=== PATIENT | female | born 1970 | race Caucasian/White ===

== ENCOUNTER → 2017-06-24 | Outpatient (CLI) | payer OTHER ==
[~2017-06-24] MED LIST: AMLO5TAB4 PO; HYDRODIURIL PO; ISON300T4 PO; LEVE500T53 PO; METO25TA91 PO; PARO20TA98 PO; POTA10TA5 PO; TRAM50TA2 PO
[2017-06-24 12:14] LABS: HEMATOCRIT 43.4 % (34.6-47.8); HEMOGLOBIN 14.8 g/dL (11.7-16.4)
[2017-06-24 12:32] LABS: BLOOD UREA NITROGEN 16 mg/dL (7-18)
[2017-06-24 12:40] LABS: ASPARTATE AMINO TRANSFERASE 20 U/L (15-37)
== END | disposition home or self-care (01) ==
LOC: STAR 10:48
PROVIDERS: ATTEND Specialist
DX: Z01.818 Encounter for other preprocedural examination (principal); N80.0 Endometriosis of uterus; N94.5 Secondary dysmenorrhea; R10.2 Pelvic and perineal pain
CPT/HCPCS: 36415; 80053; 84703; 85025

== ENCOUNTER 2017-06-30 10:36 | Day surgery (SDC) | payer OTHER ==
[~2017-06-30] VITALS: Ht 157.5 cm; Wt 63.3 kg
[~2017-06-30 10:36] MED LIST changes: +BUPIVACAINE/PF 0.25% ONE
[2017-06-30 10:54] LABS: HCG UR LOT HCG706132
[2017-06-30] MEDS ORDERED: LACTATED RINGERS 1,000 ML IV SCH (10:59)
[2017-06-30 11:01] LABS: HCG UR OBC PASS
[2017-06-30 11:04] VITALS: BP 122/84
[2017-06-30] MEDS ORDERED: MIDAZOLAM 1 MG/ML, 2ML ONE (11:30)
[2017-06-30] MEDS ORDERED: FENTANYL PF 250 MCG/5ML ONE (11:30)
[2017-06-30] MEDS ORDERED: LIDOCAINE-MPF 2% ,5ML ONE (11:31)
[2017-06-30] MEDS ORDERED: KETOROLAC 30 MG/1 ML ONE (11:31)
[2017-06-30] MEDS ORDERED: LIDOCAINE GEL 2%, 5ML ONE (11:31)
[2017-06-30] MEDS ORDERED: PROPOFOL 10 MG/ML, 20ML ONE (11:32)
[2017-06-30] MEDS ORDERED: CEFOTETAN PMX 1GM/50ML 100 ML ONE (11:32)
[2017-06-30] MEDS ORDERED: ONDANSETRON 2MG/ML, 2ML ONE (11:32)
[2017-06-30] MEDS ORDERED: DEXAMETHASONE 4 MG/ML, 1ML ONE (11:32)
[2017-06-30] MEDS ORDERED: GLYCOPYRROLATE 0.2MG/1ML, 5ML ONE (11:32)
[2017-06-30] MEDS ORDERED: NEOSTIGMINE 1 MG/ML, 10ML ONE (11:32)
[2017-06-30] MEDS ORDERED: ROCURONIUM 10 MG/ML,10ML ONE (11:32)
[2017-06-30] MEDS ORDERED: SUCCINYLCHOLINE 20 MG/ML, 10ML ONE (11:32)
[2017-06-30] MEDS ORDERED: CEFAZOLIN 1,000 MG ONE (11:32)
[2017-06-30] MEDS ORDERED: BUPIVACAINE/PF-EPI 0.25% 1:200K INFIL ONE (13:07)
[2017-06-30] MEDS ORDERED: hydrALAzine 20 MG/ML, 1ML IV PRN (13:30)
[2017-06-30] MEDS ORDERED: METOCLOPRAMIDE 5 MG/ML, 2ML IV PRN (13:30)
[2017-06-30] MEDS ORDERED: ALBUTEROL/IPRATROPIUM 2.5MG/0.5MG, 3 ML NPPB PRN (13:30)
[2017-06-30] MEDS ORDERED: ONDANSETRON 2MG/ML, 2ML IVPush PRN (13:30)
[2017-06-30] MEDS ORDERED: HYDROmorphone 1 MG/ML, 1ML IV PRN (13:30)
[2017-06-30] MEDS ORDERED: MIDAZOLAM 1 MG/ML, 2ML IV PRN (13:30)
[2017-06-30] MEDS ORDERED: LABETALOL 5MG/ML, 20ML IV PRN (13:30)
[2017-06-30] MEDS ORDERED: LORazepam 2 MG/ML, 1ML IVPush PRN (13:30)
[2017-06-30] MEDS ORDERED: DIAZEPAM 5 MG/ML, 2ML IVPush PRN (13:30)
[2017-06-30] MEDS ORDERED: PROMETHAZINE 25 MG/ML, 1ML IV PRN (13:30)
[2017-06-30] MEDS ORDERED: ACETAMINOPHEN 325 MG TABLET PO PRN (13:30)
[2017-06-30] MEDS ORDERED: MEPERIDINE/PF 25MG/0.5ML IVPush PRN (13:30)
[2017-06-30] MEDS ORDERED: OXYcodone 5 MG/5 ML ORAL.SOL UDC PO PRN (13:30)
[2017-06-30] MEDS ORDERED: ACETAMINOPHEN 650 MG/20.3 ML UDC ONE (14:09)
[2017-06-30] MEDS ORDERED: FENTANYL PF 100 MCG/2ML ONE (14:10)
[2017-06-30] MEDS ORDERED: ACETAMINOPHEN 325 MG TABLET ONE (14:10)
[2017-06-30] MEDS ORDERED: OXYcodone 5 MG/5 ML ORAL.SOL UDC ONE (14:10)
[2017-06-30] MEDS: FENTANYL PF 100 MCG/2ML IV PRN ×3 (14:21→14:50)
== END 2017-06-30 16:28 ==
LOC: OUT 10:36
PROVIDERS: ATTEND Specialist
DX: N94.6 Dysmenorrhea, unspecified (principal); N83.202 Unspecified ovarian cyst, left side; N80.1 Endometriosis of ovary; I10 Essential (primary) hypertension; Z90.710 Acquired absence of both cervix and uterus; Z98.890 Other specified postprocedural states; Z98.51 Tubal ligation status
CPT/HCPCS: 52000; 58552; 81025; 88307; J0330; J0690; J1100; J1885; J2250; J2405; J2704; J2710; J3010; J3490; J7120; S0074

== ENCOUNTER 2021-03-13 10:32 | Emergency (ER) | payer MEDICAID, OTHER ==
[~2021-03-13] VITALS: Ht 157.5 cm; Wt 70.6 kg
[~2021-03-13 10:32] MED LIST changes: -BUPIVACAINE/PF 0.25% ONE; +ISON300T10 PO; -ISON300T4 PO
[2021-03-13 11:21] VITALS: BP 159/96
== END 2021-03-13 11:56 | disposition home or self-care (01) ==
LOC: ED 11:26
DX: B34.9 Viral infection, unspecified (principal); Z20.822 Contact with and (suspected) exposure to COVID-19
CPT/HCPCS: 99283; U0003; U0005

== ENCOUNTER 2021-03-16 08:56 | Emergency (ER) | payer MEDICAID ==
[~2021-03-16] VITALS: Ht 157.5 cm; Wt 70.9 kg
[2021-03-16 09:13] VITALS: BP 142/97
== END 2021-03-16 09:32 | disposition home or self-care (01) ==
LOC: ED 09:10
DX: Z04.89 Encounter for examination and observation for other specified reasons (principal); Z20.822 Contact with and (suspected) exposure to COVID-19
CPT/HCPCS: 99283; U0003; U0005